=== PATIENT | female | born 1990 | race Caucasian/White ===

== ENCOUNTER 2016-05-05 23:27 | Emergency (ER) | payer BC ==
[~2016-05-05 23:27] MED LIST: ALBUTEROL17 GM INH; FORADIL12 MCG NEB; KEFLEX500 MG PO; LAMICTAL PO; LEVAQUIN PO; MEDROL PO; METFORMIN PO; NASONEX17 GM; PRENATAL MULTIV1 TA1 PO; ZOFRAN PO; [UNRECOGNIZED DRUG - OTHER]
== END 2016-05-05 23:30 | disposition left against medical advice (07) ==
LOC: CED 23:27
DX: Z53.21 Procedure and treatment not carried out due to patient leaving prior to being seen by health care provider (principal)